=== PATIENT | male | born 1950 | race Caucasian/White ===

== ENCOUNTER 2019-09-27 11:52 | Inpatient (IN) ==
[2019-09-27] MEDS ORDERED: *HR* Propofol 200 MG/20 ML VIAL IVP ONE (12:02)
[2019-09-27] MEDS ORDERED: Dexamethasone 4 MG/ML VIAL ONE (12:03)
[2019-09-27] MEDS ORDERED: Lidocaine -MPF 2% 2 ML VIAL ONE (12:03)
[2019-09-27] MEDS ORDERED: Ondansetron 4 MG/2 ML VIAL ONE ×2 (12:03→15:10)
[2019-09-27] MEDS ORDERED: *HR* Succinylcholine 200 MG/10 ML VIAL IVP ONE (12:03)
[2019-09-27] MEDS ORDERED: Famotidine 20 MG/2 ML VIAL IVP ONE (12:36)
[2019-09-27] MEDS ORDERED: Gabapentin 300 MG CAPSULE PO ONE (12:37)
[2019-09-27] MEDS ORDERED: Celecoxib 200 MG CAPSULE PO ONE (12:37)
[2019-09-27] MEDS ORDERED: Acetaminophen IV 1,000 MG/100 ML INFUS..BTL IVPB ONE (12:37)
[2019-09-27] MEDS ORDERED: Ringers Solution, Lactated 1,000 ML IVC SCH ×3 (12:45→16:39)
[2019-09-27] MEDS ORDERED: Clindamycin 900 MG/50 ML 900 MG/50 ML IV.SOLN IVPB ONE (12:53)
[2019-09-27] MEDS ORDERED: Ropivacaine/PF 0.5% 30 ML VIAL ONE (13:03)
[2019-09-27] MEDS ORDERED: ROPIVACAINE/PF/NS 0.25% 1 EACH SYRINGE INTRAART ONE (13:04)
[2019-09-27] MEDS ORDERED: *HR* Midazolam HCl 2 MG/2 ML VIAL ONE (13:20)
[2019-09-27] MEDS ORDERED: *HR* FentaNYL (PF) 100 MCG/2 ML VIAL ONE (13:21)
[2019-09-27] MEDS ORDERED: CeFAZolin Syr 2,000MG/20 ML 2,000 MG/20 ML SYRINGE IVPB ONE (13:23)
[2019-09-27] MEDS ORDERED: Ethanol\\Acetic Acid\\Na Ace\\Ben 1,000 ML IRRIG.SOLN IR ONE (13:45)
[2019-09-27] MEDS ORDERED: Lidocaine HCL 4 ML Topical Solution (Laryng-O-Jet Kit Sterile Pak) TP ONE (13:58)
[2019-09-27] MEDS ORDERED: *HR* OxyCODONE Immed Rel 5 MG TABLET PO PRN ×2 (14:09→16:39)
[2019-09-27] MEDS ORDERED: Ondansetron 4 MG/2 ML VIAL IVP ONE (14:09)
[2019-09-27] MEDS ORDERED: EPHEDrine 50 MG/ML VIAL ONE (14:30)
[2019-09-27 16:10] LABS: Hematocrit 41.8 % (37.5-50.1); Hemoglobin 13.8 g/dL (12.9-16.9)
[2019-09-27] MEDS ORDERED: Ondansetron 4 MG/2 ML VIAL IVP PRN (16:39)
[2019-09-27] MEDS ORDERED: *HR* OxyCODONE/APAP 5/325 TABLET PO PRN (16:39)
[2019-09-27] MEDS ORDERED: Sennosides 8.6 MG TABLET PO PRN (16:39)
[2019-09-27] MEDS ORDERED: MOM Conc 10 ML UD.LIQ PO PRN (16:39)
[2019-09-27] MEDS ORDERED: Naloxone 0.4 MG/ML INJ IVP PRN (16:39)
[2019-09-27] MEDS ORDERED: *HR* Enoxaparin 30 MG/0.3 ML SYRINGE SQ SCH (18:00)
[2019-09-27 19:35] VITALS: BP 117/71
[2019-09-27] MEDS ORDERED: ceFAZolin 2,000 MG in 0.9 % Sodium Chloride 100 ML IVPB SCH (21:00)
[2019-09-28] MEDS ORDERED: predniSONE 5 MG TABLET PO SCH (09:00)
[2019-09-28] MEDS ORDERED: GINSENG 100 MG PO SCH (09:00)
[2019-10-02] MEDS ORDERED: NON-FORMULARY MEDICATION 1 EACH EACH (Alendronate Sodium [Fosamax] 70 MG) PO SCH (13:13)
== END 2019-09-27 19:28 | disposition home or self-care (01) | DRG 483 ==
LOC: SAMDAY 11:52 → 3NENU 16:33
PROVIDERS: ADMIT Orthopaedic Surgery; ATTEND Orthopaedic Surgery